=== PATIENT | female | born 1970 | race Caucasian/White ===

== ENCOUNTER 2018-10-28 13:01 | Outpatient (RCR) | payer OTHER | END 2019-01-26 | disposition home or self-care (01) | LOC: WSPT | DX: M54.5 Low back pain (principal) ==

== ENCOUNTER → 2019-10-30 | Outpatient (CLI) | payer OTHER | LOC: MKS.ESL.PT 08:06 | DX: M51.36 Other intervertebral disc degeneration, lumbar region (principal) ==